=== PATIENT | female | born 1960 | race Caucasian/White ===

== ENCOUNTER 2017-09-08 10:32 | Day surgery (SDC) | payer OTHER ==
[~2017-09-08] VITALS: Ht 154.9 cm; Wt 101.0 kg
[2017-09-08 11:23] VITALS: Ht 154.9 cm; Wt 101.0 kg
[2017-09-08] MEDS ORDERED: PROPOFOL 60 ML ONE (11:43)
[2017-09-08] MEDS ORDERED: LIDOCAINE 2% (SDV) 5 ML INJ ONE (11:43)
[2017-09-08 11:44] VITALS: BP 181/87; PULSE 64; RESP 20
--- NOTE | 2017-09-08 12:19 | OPPN ---
Date/Time of Note Date/Time of Note DATE: 09/08/17 TIME: 12:19 Operative Report Preoperative Diagnosis Screening Postoperative Diagnosis Internal hemorrhoids No colon neoplasm is identified Operation/Procedure Performed Colonoscopy Surgeon see signature line internal medicine physician assistant None Anesthesia: MAC Estimated blood loss: none Transfusion Required none Specimen None Grafts/Implants none Complications none GETACHEW MO MD Sep 08, 2017 12:19
--- NOTE | 2017-09-08 12:42 | GILP ---
DATE OF PROCEDURE: 09/08/2017 NAME OF PROCEDURE: Colonoscopy. SURGEON: Getachew Mcgill MD PREOPERATIVE DIAGNOSIS: Screening colonoscopy. POSTOPERATIVE DIAGNOSES 1. Colonoscopy all the way to the cecum. 2. Internal hemorrhoids. 3. No colon neoplasm was identified. INDICATION FOR THE PROCEDURE: Ms. Johanny Ortiz is a 57-year-old female patient who was scheduled for screening colonoscopy. The procedure and possible complications are well explained to the patient, she understood and conse nted to the procedure. DESCRIPTION OF PROCEDURE: Under the influence of anesthesia, the colonoscope was carefully introduc ed in the rectum and under direct vision, it was advanced all the way to the cecum. FINDINGS: The patient had internal hemorrhoids. No colon neoplasm was identified. The patient tolerated the procedure very well and there was no complication from the procedure. At the end of the procedure, she was awake with stable vital signs and she was discharged home to the are of her family. IMPRESSION: Please see postoperative diagnoses. PLAN: Next screening colonoscopy in 10 years. Dictated By: GETACHEW LEE/JENNIFER Conf#: [id number] DID#: [id number]
[2017-09-08 12:44] VITALS: BP 153/90; PULSE 57; RESP 24
== END 2017-09-08 17:22 | disposition home or self-care (01) ==
LOC: GIL 10:32
PROVIDERS: ATTEND Internal Medicine Gastroenterology
DX: Z12.11 Encounter for screening for malignant neoplasm of colon (principal); K64.8 Other hemorrhoids; I10 Essential (primary) hypertension; E78.5 Hyperlipidemia, unspecified; E66.01 Morbid (severe) obesity due to excess calories; Z68.41 Body mass index [BMI] 40.0-44.9, adult
CPT/HCPCS: 45378; Z7610